=== PATIENT | female | born 1995 | race Caucasian/White ===

== ENCOUNTER → 2016-03-30 | Outpatient (CLI) | payer OTHER ==
--- NOTE | 2016-03-30 14:39 | DX ---
Foot Minimum 3 Views Right History: Trauma, pain. Sprain right ankle, soccer injury yesterday. S93.401A. Comparison: None. Findings: Tiny bone fragment involving the anterosuperior corner of the calcaneus identified on the o blique view. Medial hindfoot soft tissue swelling noted. No definite fracture of the toes or metatars als. No definite navicular or cuboid fracture. Impression: 1. Suspect distal corner fracture of the calcaneus. 2. Medial hindfoot soft tissue swelling. 3. Consider additional dedicated views of the right ankle or CT of the right foot for further evaluat ion.
== END ==
LOC: BRMIMAGING 11:23
PROVIDERS: ATTEND Physician Assistant
DX: S93.401A Sprain of unspecified ligament of right ankle, initial encounter (principal); M79.89 Other specified soft tissue disorders
CPT/HCPCS: 73630-PO